=== PATIENT | male | born 1955 | race Caucasian/White ===

== ENCOUNTER 2017-03-25 05:02 | Emergency (ER) | payer OTHER ==
[~2017-03-25] VITALS: Ht 175.3 cm; Wt 74.8 kg
--- NOTE | ~2017-03-25 | CT4 ---
[facility] A Service of [facility] & [facility] RADIOLOGY TEXT RESULTS PATIENT: FRANCES IRENE LOCATION: SED : 59 UNIT #: [id number] AGE: [address]: Audra Franklin MD SEX: M ORDER DR: [id number] [place] [id number] E MR#: [id number] Acc #: [id number] NAME: FRANCES IRENE : 1955 SEX: M STUDY DATE/TIME: 03/25/2017 5:56 UNIT: SED ROOM: STUDY DESCRIPTION: CT Abd and Pelv Wo Cont Attending Physician: Audra Franklin M.D. Ordering Physician: Audra Franklin M.D. Primary Care Physician: [facility] MEDICAL IMAGING REPORT This report is preliminary unless electronic signature is present. EXAM CT abdomen and pelvis without IV contrast COMPARISON March 07, 2017 and September 14, 2010 as well as October 28, 2016, June 04, 2016, April 05, 2016, March 31, 2016. ERCP performed March 07, 2017. INDICATIONS 61-year-old male with right upper quadrant abdominal pain, nausea, emesis and diarrhea since yesterday. FINDINGS Axial CT imaging of the abdomen and pelvis was performed without IV contrast. Lack of IV contrast limits evaluation of adenopathy, vasculature and viscera. This CT exam was performed with one or more of the following radiation dose reduction techniques: Automatic exposure control, adjustment of mA and/or kV according to patient size, and iterative reconstruction. On the left at L5-S1, there are pedicle screws with interlocking posterior stabilization rods, stable appearance from March 07, 2017. Disc spacer appears stable at this level as well. There is marked degenerative facet disease at this level. There is a small posterior disc osteophyte complex at this level as well, eccentric to the right. Stable small posterior disc protrusion at L4-L5. No acute fractures or suspicious osseous lesions. Minimal calcification at the wall of the aortic valve. Minimal dependent atelectasis in the right lower lobe. In the right middle lobe, there is increased band-like consolidation with internal air bronchograms most in keeping with atelectasis. This is favored that there is volume loss in the right middle lobe of uncertain etiology. There is new marked fluid and gas distension of the stomach. There is STS. [facility] A Service of [facility] & [facility] RADIOLOGY TEXT RESULTS PATIENT: FRANCES IRENE LOCATION: SED : 59 UNIT #: [id number] AGE: [address]: Audra Franklin MD SEX: M ORDER DR: also marked fluid distension of the proximal duodenum, which decompresses in the transverse duodenum. Pancreatic stent is noted with the tip terminating in the second portion of the duodenum. No evidence of acute pancreatitis. The gallbladder is not well seen and is either decompressed or surgically absent. No evidence of biliary dilatation. There are calcified granulomas within the spleen. There are bilateral nonobstructive renal calculi. No adrenal nodules. There are two lesions in the right kidney with negative internal Hounsfield units, possibly reflecting angiomyolipomas or cysts. There is a separate cyst at the superior pole of the right kidney and a separate angiomyolipoma versus simple cyst in the superior pole of the right kidney. Mid pole of the left kidney there is a cyst versus angiomyolipoma with negative internal Hounsfield units of -9. No hydronephrosis or hydroureter. No ureteral calculi. Bilateral pelvic phleboliths. Minimal calcifications of the prostate gland, a nonspecific finding perhaps due to remote prostatitis. There is mild sigmoid and left colonic diverticulosis without evidence of acute diverticulitis. There is fatty replacement of the ileocecal valve. The appendix is normal. There is fecalization of contents in the distal ileum suggestive of stasis. No adenopathy seen in the abdomen or pelvis. No pneumoperitoneum. Diffuse calcification of the abdominal aorta, including origins of the celiac artery. Calcifications extend into the iliac arteries bilaterally. There is ectasia of the infrarenal abdominal aorta measuring up to 2.8 cm. IMPRESSION 1. There are abnormally fluid-distended small bowel loops in the right hemiabdomen favored to reflect jejunum. There is apparent gradual tapering, with possible transition point in the left lower quadrant of the abdomen. There is also marked fluid distension of the duodenum and the stomach. Findings could reflect an acute gastritis/enteritis but given the fluid distension, small bowel obstruction due to adhesions cannot be excluded. Clinical correlation recommended. 2. Pancreatic stent without evidence of acute pancreatitis. Stent appears adequately positioned. 3. The gallbladder is not seen and is favored to be surgically absent. 4. Increasing band-like attenuation in the right middle lobe, favoring atelectasis. There appears to be volume loss in the right middle lobe of uncertain etiology, perhaps due to fluid distension of the stomach pressing on the diaphragm. One could consider CT imaging followup in 3-6 months to document resolution. 5. Degenerative changes in the lumbar spine as described in the body of the report. 6. Renal calculi without evidence of obstructive uropathy. 7. Mild diverticulosis without evidence of acute diverticulitis. 8. Fecalization of contents in the terminal ileum suggesting stasis. 9. Ectasia of the infrarenal abdominal aorta measuring up to 2.8 cm. [facility]. [facility] A Service of [facility] RADIOLOGY TEXT RESULTS PATIENT: FRANCES IRENE LOCATION: [facility] : [birth year] UNIT #: [id number] AGE: [address]: Audra Franklin MD SEX: M ORDER DR: Dictated by... Ceferino Wesley M.D. THIS IS AN ELECTRONICALLY VERIFIED REPORT Ceferino Wesley M.D. at 03/31/2017 10:43 AM SUSHILA/haider TD: 03/25/2017 11:51 JOB #: [id number] MEDICAL IMAGING REPORT Page 1 of 1
[~2017-03-25 05:02] MED LIST: AMITRYPTYLINE PO; BENTYL20 MG PO; CIPRO PO; CIPRO250 MG PO; FLAGYL PO; FLEXERIL PO; FLEXERIL10 M1 PO; FLEXERIL10 MG PO; FLOMAX0.4 MG PO; HYDROCODON-ACE1 EACH PO; IBUPROFEN800 MG PO; LEVAQUIN PO; LORTAB 5/500 TA1 TA1 PO; LORTAB 5/500 TA1 TA2 PO; LORTAB 7.5-5001 TAB PO; MACROBID100 MG PO; MEDROL PO; NAPROXEN PO; NO MEDICATIONS; PHENERGAN PO; PHENERGAN25 MG PO; PREDNISONE10 MG/DOSE PO; PYRIDIUM PO; TETRACYCLINE PO; TYLOX 5-500 CA1 EACH PO; TYLOX 5-500 MG1 EACH PO; TYLOX1 CAP 5/50 PO; ULTRAM PO; VICODIN 5/500 T1 TAB PO; VICODIN PO; WELLBUTRIN; ZOFRAN PO
[2017-03-25] MEDS ORDERED: MS CONTIN30 M1 (05:09)
[2017-03-25] MEDS ORDERED: PERCOCET 7.5-31 EACH (05:10)
[2017-03-25 05:57] LABS: BASOPHIL# 0.1 X10e3 (0-0.3); BASOPHIL% 1.4 % (0-2.5); HEMATOCRIT 43.7 % (38.0-50.0); LYMPHOCYTE# 1.2 X10e3 (1.0-3.5); LYMPHOCYTE% 11.5 % (17.0-45.0); MEAN CELL VOLUME 83.1 FL (83-96); MEAN CORPUSCULAR HEMOGLOBIN 28.6 PG (28-34); MEAN CORPUSCULAR HGB CONC 34.4 g/dL (30-36); MEAN PLATELET VOLUME 7.3 FL (6.5-11.5); MONOCYTE# 0.2 X10e3 (0-1.0); MONOCYTE% 2.4 % (3.0-12.0); NEUTROPHIL# 8.8 X10e3 (1.5-7.1); NEUTROPHIL% 84.7 % (40-75); PLATELET COUNT 480 X10e3 (140-420); RED BLOOD COUNT 5.25 X10e (3.90-5.60); RED CELL DISTRIBUTION WIDTH 19.2 % (11.0-15.5); WHITE BLOOD COUNT 10.4 X10e3 (4.0-10.5)
[2017-03-25 05:58] LABS: DIFF IND NO
[2017-03-25 06:13] LABS: ALBUMIN SERUM 4.4 g/dL (3.5-5.0); ALKALINE PHOSPHATASE 52 U/L (32-92); ALT (SGPT) 12 U/L (10-40); AMYLASE 13 U/L (0-46); AST (SGOT) 15 U/L (10-42); BILIRUBIN,TOTAL 0.4 mg/dL (0.2-2.0); BLOOD UREA NITROGEN 10 mg/dL (9-23); BUN/CREATININE RATIO 8.33; CALCIUM SERUM 9.4 mg/dL (8.4-10.2); CARBON DIOXIDE 21 mmol/L (22-31); CHLORIDE 107 mmol/L (100-111); CREATININE SERUM 1.2 mg/dL (0.6-1.4); GLOM FILT RATE Estimated 65.8 mL/min (>60); GLUCOSE FASTING 164 mg/dL (70-110); LIPASE 31 U/L (22-51); POTASSIUM 3.5 mmol/L (3.5-5.1); PROTEIN TOTAL SERUM 8.1 g/dL (6.0-8.3); SODIUM 136 mmol/L (135-145)
[2017-03-25 06:15] LABS: BILIRUBIN, DIRECT <0.1 mg/dL (0.0-0.2); BILIRUBIN,INDIRECT 0.3 mg/dL (0.0-0.9)
== END 2017-03-25 07:46 | disposition home or self-care (01) ==
LOC: SED 05:02
PROVIDERS: Emergency Medicine
DX: K52.9 Noninfective gastroenteritis and colitis, unspecified (principal); Z87.442 Personal history of urinary calculi; F32.9 Major depressive disorder, single episode, unspecified; F17.210 Nicotine dependence, cigarettes, uncomplicated; Z90.49 Acquired absence of other specified parts of digestive tract
CPT/HCPCS: 36415; 74176; 80048; 80076; 82150; 83690; 85025; 96361; 96374; 96375; 99284; J1200; J1885; J2765

== ENCOUNTER 2017-03-27 03:52 | Emergency (ER) | payer OTHER ==
[~2017-03-27 03:52] MED LIST changes: +MS CONTIN30 M1; +PERCOCET 7.5-31 EACH
[2017-03-27 04:49] LABS: BASOPHIL% 0.4 % (0-2.5); DIFF IND NO; EOSINOPHIL# 0.5 X10e3 (0-0.7); EOSINOPHIL% 4.2 % (0.0-7.0); HEMATOCRIT 42.1 % (38.0-50.0); HEMOGLOBIN 14.3 gm/dL (13.0-16.0); LYMPHOCYTE# 2.6 X10e3 (1.0-3.5); LYMPHOCYTE% 22.7 % (17.0-45.0); MEAN CELL VOLUME 82.1 FL (83-96); MEAN CORPUSCULAR HGB CONC 34.1 g/dL (30-36); MEAN PLATELET VOLUME 6.9 FL (6.5-11.5); MONOCYTE% 8.5 % (3.0-12.0); NEUTROPHIL# 7.3 X10e3 (1.5-7.1); NEUTROPHIL% 64.2 % (40-75); PLATELET COUNT 444 X10e3 (140-420); RED BLOOD COUNT 5.12 X10e (3.90-5.60); RED CELL DISTRIBUTION WIDTH 19.2 % (11.0-15.5); WHITE BLOOD COUNT 11.4 X10e3 (4.0-10.5)
[2017-03-27 05:23] LABS: ALBUMIN SERUM 4.3 g/dL (3.5-5.0); ALKALINE PHOSPHATASE 49 U/L (32-92); ALT (SGPT) 11 U/L (10-40); AMYLASE 25 U/L (0-46); AST (SGOT) 13 U/L (10-42); BILIRUBIN,TOTAL 0.3 mg/dL (0.2-2.0); BLOOD UREA NITROGEN 11 mg/dL (9-23); CALCIUM SERUM 9.2 mg/dL (8.4-10.2); CARBON DIOXIDE 16 mmol/L (22-31); CHLORIDE 111 mmol/L (100-111); CREATININE SERUM 1.1 mg/dL (0.6-1.4); GLOM FILT RATE Estimated 73.1 mL/min (>60); GLUCOSE FASTING 120 mg/dL (70-110); LIPASE 49 U/L (22-51); PROTEIN TOTAL SERUM 7.6 g/dL (6.0-8.3); SODIUM 138 mmol/L (135-145)
[2017-03-27 05:29] LABS: BILIRUBIN, DIRECT <0.1 mg/dL (0.0-0.2); BILIRUBIN,INDIRECT 0.2 mg/dL (0.0-0.9); POTASSIUM 2.8 mmol/L (3.5-5.1)
== END 2017-03-27 09:40 | disposition home or self-care (01) ==
LOC: CED 03:52
PROVIDERS: Emergency Medicine
DX: K86.1 Other chronic pancreatitis (principal); E87.6 Hypokalemia; F17.200 Nicotine dependence, unspecified, uncomplicated
CPT/HCPCS: 36415; 80048; 80076; 82150; 83690; 85025; 96361; 96372; 96374; 96375; 96376; 99284; J1200; J2270; J2550; J2765